=== PATIENT | female | born 1970 | race Caucasian/White ===

== ENCOUNTER 2021-10-30 09:14 | Observation (INO) ==
[2021-10-30] MEDS ORDERED: Isovue-370 500 ML BOTTLE IVP ONE (09:57)
[2021-10-30] MEDS ORDERED: 0.9 % Sodium Chloride 1,000 ML IVC ONE (12:21)
[2021-10-30] MEDS ORDERED: *HR* OxyCODONE/APAP 5/325 TABLET PO ONE (12:21)
[2021-10-30] MEDS ORDERED: cefTRIAXone 1,000 MG in Water for inj. (sterile) 10 ML IVP ONE (13:10)
[2021-10-30 14:53] LABS: Bacteria,Urine Moderate per hpf (None-Few); Bilirubin,Urine Negative (Negative); Blood,Urine Small (Negative); Clarity,Urine Turbid (Clear); Color,Urine Yellow (Yellow); Glucose,Urine (UA) Normal (Normal); Ketones,Urine Negative (Negative); Leukocyte Esterase,Urine Large (Negative); Mucus,Urine Few per lpf (None-Few); Nitrite,Urine Positive (Negative); PH,Urine 6.5 pH Units (5.0-8.0); Protein,Urine 30 mg/dL (Neg-Trace); RBC,Urine 30-50 per hpf (0-3); Specific Gravity,Urine > 1.030 (1.010-1.025); Squamous Epithelial Cell,Urine Moderate per hpf (None-Few); Urobilinogen,Urine Normal (Normal); WBC,Urine TNTC per hpf (0-3)
[2021-10-30] MEDS ORDERED: *HR* Heparin 5,000 UNIT/ML VIAL IVP PRN ×2 (15:55)
[2021-10-30] MEDS ORDERED: *HR* Heparin 5,000 UNIT/ML VIAL IVP ONE (15:55)
[2021-10-30] MEDS ORDERED: Dextrose Gel 15 GM/37.5 ML TUBE PO PRN ×2 (15:56)
[2021-10-30] MEDS ORDERED: *HR* Dextrose 50 % in Water (Syg) 50 ML SYRINGE IVP PRN (15:56)
[2021-10-30] MEDS ORDERED: D5% in Water 1,000 ML IVC PRN (15:56)
[2021-10-30] MEDS ORDERED: Ondansetron 4 MG/2 ML VIAL IVP PRN (15:57)
[2021-10-30] MEDS ORDERED: Naloxone 0.4 MG/ML INJ IVP PRN (15:57)
[2021-10-30] MEDS ORDERED: Heparin 25,000UNIT/250ML 1/2NS 25,000 UNIT/250 ML IV.SOLN IVC SCH (16:00)
[2021-10-30 17:16] LABS: Hematocrit 38.8 % (35.3-44.9); Hemoglobin 12.3 g/dL (11.5-15.4); Mean Corpuscular HGB Conc 31.7 g/dL (31.6-35.5); Mean Corpuscular Volume 91.5 fL (83.0-100.0); Mean Platelet Volume 10.8 fL (9.4-12.4); Platelet Count 650 K/mcL (140-400); Red Blood Count 4.24 M/mcL (3.82-4.97); Red Cell Distribution Width 15.4 % (11.5-14.5); White Blood Count 9.6 K/mcL (4.3-11.1)
[2021-10-30 17:22] LABS: Heparin anti-factor XA UFH < 0.04 IU/mL (0.30-0.70)
[2021-10-30 17:23] LABS: INR 1.1; Prothrombin Time 11.9 Seconds (9.4-12.1)
[2021-10-30 17:25] LABS: Activated Partial Thrombo Time 31.1 Seconds (26.0-36.0)
[2021-10-30] MEDS: Heparin 25,000UNIT/250ML 1/2NS 25,000 UNIT/250 ML IV.SOLN IVC SCH (17:34)
[2021-10-30] MEDS: Budesonide/Formoterol 160/4.5 1 PUFF INH IH SCH (20:27)
[2021-10-30] MEDS: Nicotine 21 MG PATCH.TD24 TD SCH (20:49)
[2021-10-30] MEDS: Insulin LISPRO 300 UNITS/3 ML VIAL SUBQ SCH (20:49)
[2021-10-30] MEDS ORDERED: Mirtazapine 15 MG TABLET PO SCH (21:00)
[2021-10-30] MEDS ORDERED: Insulin DETEMIR 100 UNIT/ML X5UNITS SUBQ SCH (21:00)
[2021-10-30] MEDS ORDERED: Insulin LISPRO 300 UNITS/3 ML VIAL SUBQ SCH (21:00)
[2021-10-30] MEDS: Pregabalin 50 MG CAPSULE PO SCH (21:23)
[2021-10-31 01:06] LABS: Basophils # 0.4 K/mcL (0.0-0.2); Basophils % 3.8 %; Eosinophils # 0.5 K/mcL (0.0-0.6); Eosinophils % 5.1 %; Hematocrit 38.1 % (35.3-44.9); Hemoglobin 12.3 g/dL (11.5-15.4); Immature Granulocytes % 0.7 % (0-4); Lymphocytes # 3.1 K/mcL (0.6-4.6); Lymphocytes % 30.5 %; Mean Corpuscular HGB Conc 32.3 g/dL (31.6-35.5); Mean Corpuscular Hemoglobin 29.6 pg (28.0-33.3); Mean Corpuscular Volume 91.8 fL (83.0-100.0); Monocytes # 0.3 K/mcL (0.0-1.3); Monocytes % 3.2 %; Neutrophils # 5.8 K/mcL (1.6-8.9); Platelet Count 679 K/mcL (140-400); Red Blood Count 4.15 M/mcL (3.82-4.97); Red Cell Distribution Width 15.4 % (11.5-14.5); Segmented Neutrophils % 56.7 %; White Blood Count 10.3 K/mcL (4.3-11.1)
[2021-10-31 01:16] LABS: BUN/Creatinine Ratio 17 (6-26); Blood Urea Nitrogen 12 mg/dL (6-20); Carbon Dioxide 26 mEq/L (23-29); Chloride 107 mEq/L (98-107); Glucose 121 mg/dL (70-105); Magnesium 1.7 mg/dL (1.6-2.6); Osmolality,Calculated 289 (280-300); Potassium 3.2 mEq/L (3.5-5.1); Sodium 139 mEq/L (136-145); eGFR For African Americans > 60 (> 60); eGFR For Non-African Americans > 60 (> 60)
[2021-10-31 01:17] LABS: Heparin anti-factor XA UFH 0.83 IU/mL (0.30-0.70); Prothrombin Time 11.6 Seconds (9.4-12.1)
[2021-10-31 01:33] LABS: Activated Partial Thrombo Time 133.4 Seconds (26.0-36.0)
[2021-10-31] MEDS: Insulin LISPRO 300 UNITS/3 ML VIAL SUBQ SCH ×2 (07:23→12:55)
[2021-10-31] MEDS: Budesonide/Formoterol 160/4.5 1 PUFF INH IH SCH (07:39)
[2021-10-31] MEDS ORDERED: Tiotropium 10 INH DOSE IH ONE (07:39)
[2021-10-31] MEDS: Pregabalin 50 MG CAPSULE PO SCH ×2 (08:29→14:14)
[2021-10-31] MEDS: Nicotine 21 MG PATCH.TD24 TD SCH (08:35)
[2021-10-31] MEDS ORDERED: *HR* HYDROcodone/Acet 5/325 mg TABLET PO PRN (08:35)
[2021-10-31] MEDS ORDERED: Tiotropium 10 INH DOSE IH SCH (10:00)
[2021-10-31 12:24] VITALS: BP 152/81; PULSE 72; TEMP 98.1; O2SAT 95
[2021-10-31] MEDS: Heparin 25,000UNIT/250ML 1/2NS 25,000 UNIT/250 ML IV.SOLN IVC SCH (12:39)
[2021-10-31] MEDS ORDERED: cefTRIAXone 1,000 MG in 0.9 % Sodium Chloride 10 ML IVPB SCH (14:00)
[2021-10-31] MEDS ORDERED: *HR* Rivaroxaban 15 MG TABLET PO ONE (14:30)
[2021-11-05] MEDS ORDERED: *HR* Methotrexate 2.5 MG TABLET PO SCH (12:00)
== END 2021-10-31 15:56 | disposition home or self-care (01) ==
LOC: EMEROOARM 09:14 → 3BNU 09:14 → SUATTDRO 17:33 → 3BNU 18:41
PROVIDERS: ADMIT Internal Medicine; ATTEND Family Medicine